=== PATIENT | male | born 1970 | race African-American/Black ===

== ENCOUNTER 2020-10-29 18:16 | Inpatient (IN) | payer MEDICAID ==
[~2020-10-29] VITALS: Ht 182.9 cm; Wt 103.7 kg
[2020-10-29 19:00] VITALS: BP 127/78; BMI 29.0
--- NOTE | 2020-10-29 19:00 | NUR ---
Two IVs started; 20g LAC and 20g RAC, two attempts, good blood return, patent and secure with tape and clear dressing. Procedure explained, tolerated well.
[2020-10-29 19:54] LABS: BASOPHILS 0.6 % (0-2); EOSINOPHILS 1.8 % (0-7); IMMATURE GRANULOCYTES 0.7 % (0-5); LYMPHOCYTE ABS# 0.99 10x3/uL (1.32-3.57); MCH 27.6 pg (26.0-34.0); MCHC 32.6 g/dL (31.0-37.0); MCV 84.6 fL (80.0-100.0); MEAN PLATELET VOLUME 9.3 fL (7.4-10.4); MONOCYTES 8.7 % (2-11); NEUTROPHIL ABS# 5.26 10x3/uL (1.78-5.38); NEUTROPHILS 74.2 % (40-80); PLATELET COUNT 247 10x3/uL (130-400); RBC 2.28 10x6/uL (4.20-6.10); RDW 16.9 % (11.5-14.5); RETIC 3.85 % (0.45-2.28); WBC 7.1 10x3/uL (4.8-10.8)
[2020-10-29 20:00] VITALS: BP 126/80
[2020-10-29] MEDS ORDERED: NORVASC10 MG PO (20:03)
[2020-10-29] MEDS ORDERED: METOPROLOL TART50 MG PO (20:04)
[2020-10-29 20:17] LABS: APTT 33.8 SECONDS (22.8-39.4); INR 1.45 (0.85-1.17); PROTIME 16.3 SECONDS (11.6-15.0)
[2020-10-29 20:21] LABS: % SATURATION 10 % (15-55); IRON 18 ug/dl (35-150); TOTAL IRON BIND CAPACITY 178 ug/dl (260-445); UNSAT IRON BIND CAPACITY 160 ug/dl (150-375)
[2020-10-29 20:46] LABS: ALBUMIN 3.4 g/dL (3.4-5.0); ANION GAP 28.6 mmol/L (8-16); BILIRUBIN - TOTAL 0.6 mg/dL (0.2-1.3); CARBON DIOXIDE 11.1 mmol/L (21.0-32.0); CREATININE - SERUM 27.9 mg/dL (0.6-1.3); POTASSIUM - SERUM 4.7 mmol/L (3.5-5.1); PROTEIN - SERUM 7.2 g/dL (6.4-8.2)
[2020-10-29 20:49] LABS: CALCIUM 6.2 mg/dL (8.5-10.1)
[2020-10-29 20:50] LABS: HEMATOCRIT 19.3 % (42.0-54.0); HEMOGLOBIN 6.3 g/dL (13.5-17.5)
[2020-10-29 21:00] VITALS: BP 121/75
[2020-10-29 21:10] LABS: D-DIMER-QUANTITATIVE 3.27 ug/mLFEU (0.20-0.54)
[2020-10-29 21:40] VITALS: BP 121/75
--- NOTE | 2020-10-29 21:40 | NUR ---
Blood transfusion started to LAC 20g. Order and consent verified. Blood product verified with patient identification/blood bank armband. Second verification with Dejah Landry RN. See vitals flowsheet for details.
--- NOTE | 2020-10-29 21:55 | NUR ---
No sign of transfusion reaction observed or reported. Blood transfusion rate increased from 50 ml/hr to 150 ml/hr.
[2020-10-29 22:00] VITALS: BP 123/68
[2020-10-29 23:00] VITALS: BP 133/86
--- NOTE | 2020-10-29 23:15 | NUR ---
EKG completed as ordered. Normal sinus rhythm with prolonged QT 440/488 ms. HR 74. Hardcopy placed in chart.
[2020-10-29 23:18] LABS: CKMB 2.7 U/L (0.0-3.6); CREATINE KINASE 453 UL (21-232); TROPONIN-I 0.024 ng/mL (0.000-0.060)
--- NOTE | 2020-10-29 23:30 | NUR ---
Dr. Nagel contacted for lovenox dosing per CARLOS MANUEL Lopez Lovenox 30mg sq x 1 and consult pharmacy for dosing.
[2020-10-29 23:57] LABS: UDS - AMPHET NEGATIVE QUAL (NEGATIVE); UDS - BARB NEGATIVE QUAL (NEGATIVE); UDS - BENZO NEGATIVE QUAL (NEGATIVE); UDS - COCAINE NEGATIVE QUAL (NEGATIVE); UDS - OPIATE NEGATIVE QUAL (NEGATIVE); UDS - PCP NEGATIVE QUAL (NEGATIVE); UDS - THC NEGATIVE QUAL (NEGATIVE)
[2020-10-29 23:58] LABS: BILIRUBIN NEGATIVE (NEGATIVE); KETONE NEGATIVE (NEGATIVE); NITRITE NEGATIVE (NEGATIVE); UROBILINOGEN NORMAL mg/dL (< 2)
[2020-10-30] VITALS (20 sets, daily range): BP systolic 120–170; BP diastolic 80–100; BMI 29.6
[2020-10-30 00:01] LABS: BACTERIA FEW HPF (NONE SEEN); SQUAMOUS EPITHELIAL 0-5 HPF (0-4); WHITE CELLS - URINE 0-5 HPF (0-1)
--- NOTE | 2020-10-30 00:18 | NUR ---
Blood transfusion completed. See vitals flowsheet. 335ml infused including NS priming.
--- NOTE | 2020-10-30 00:20 | NUR ---
Blood transfusion started to LAC 20g. Blood product verified with patient identification and bloodbank armband. Second verification with Nerissa Mitchell RN. See blood administration record and vitals flowsheet for details.
--- NOTE | 2020-10-30 02:36 | NUR ---
Second blood transfusion completed. 282ml infused. No sign of reaction observed or reported, remains afebrile.
--- NOTE | 2020-10-30 04:22 | NUR ---
EKG completed. Normal sinus rhythm, prolonged QT, nonspecific Twave abnormality, HR 76. Hardcopy placed in chart.
--- NOTE | 2020-10-30 05:06 | NUR ---
Shift summary: Patient received 2 units PRBCs as ordered. Oral intake adequate, voids urine independently. Alert and oriented, denies any pain. Renal US and LLE US completed awaiting result. Personal items and call light within reach at bedside. Plan of care discussed. See flowsheets for details.
[2020-10-30 05:18] LABS: BASOPHILS 0.5 % (0-2); EOSINOPHILS 2.3 % (0-7); HEMATOCRIT 21.9 % (42.0-54.0); IMMATURE GRANULOCYTES 0.3 % (0-5); LYMPHOCYTE ABS# 1.36 10x3/uL (1.32-3.57); MCH 27.3 pg (26.0-34.0); MCHC 32.4 g/dL (31.0-37.0); MCV 84.2 fL (80.0-100.0); MEAN PLATELET VOLUME 10.3 fL (7.4-10.4); MONOCYTES 9.5 % (2-11); NEUTROPHIL ABS# 4.04 10x3/uL (1.78-5.38); NEUTROPHILS 65.4 % (40-80); PLATELET COUNT 249 10x3/uL (130-400); RDW 16.4 % (11.5-14.5); WBC 6.2 10x3/uL (4.8-10.8)
[2020-10-30 05:43] LABS: HEMOGLOBIN 7.1 g/dL (13.5-17.5)
[2020-10-30 05:56] LABS: ALBUMIN 2.9 g/dL (3.4-5.0); ALKALINE PHOSPHATASE 46 U/L (30-120); BILIRUBIN - TOTAL 0.68 mg/dL (0.2-1.3); CARBON DIOXIDE 10.7 mmol/L (21.0-32.0); CHLORIDE - SERUM 102 mmol/L (98-107); CKMB 3.2 U/L (0.0-3.6); CREATINE KINASE 432 UL (21-232); GLUCOSE 77 mg/dL (74-106); MAGNESIUM - SERUM 1.7 mg/dL (1.8-2.4); POTASSIUM - SERUM 4.3 mmol/L (3.5-5.1); PROTEIN - SERUM 7.3 g/dL (6.4-8.2); SODIUM 137 mmol/L (136-145); TROPONIN-I < 0.017 ng/mL (0.000-0.060)
[2020-10-30 06:07] LABS: ALT (SGPT) 15 U/L (10-68); CALC OSMOLALITY 324 mosm/kg (275-300); CREATININE - SERUM 27.1 mg/dL (0.6-1.3); eGFR NON AFRICAN AMERICAN 2 mL/min (90-120)
[2020-10-30 06:09] LABS: CALCIUM 6.3 mg/dL (8.5-10.1); PHOSPHOROUS 11.9 mg/dL (2.5-4.9); UREA NITROGEN 158 mg/dL (7-18)
--- NOTE | 2020-10-30 06:19 | NUR ---
Patient refused beltran catheter placement. Risks and benefits discussed, verbalized understanding.
--- NOTE | 2020-10-30 06:59 | NUR ---
Spoke to Yashira in pharmacy regarding lovenox dosing for patient. Pharmacy will dose for DVT prophylaxis per Dr. Nagel's request.
[2020-10-30 10:15] LABS: CKMB 2.9 U/L (0.0-3.6); CREATINE KINASE 422 UL (21-232); TROPONIN-I < 0.017 ng/mL (0.000-0.060)
[2020-10-31] VITALS (15 sets, daily range): BP systolic 130–156; BP diastolic 73–91
[2020-10-31 02:40] LABS: CREATININE - URINE 102.2 mg/dL (30-125); PRO/CRE RATIO URINE 1.9 mg/g; PROTEIN - URINE 196.3 mg/dL (0.0-11.9)
[2020-10-31 04:48] LABS: BASOPHILS 0.1 % (0-2); EOSINOPHILS 1.2 % (0-7); HEMATOCRIT 20.7 % (42.0-54.0); IMMATURE GRANULOCYTES 0.2 % (0-5); LYMPHOCYTE ABS# 1.01 10x3/uL (1.32-3.57); LYMPHOCYTES 12.2 % (15-50); MCH 27.5 pg (26.0-34.0); MCHC 33.3 g/dL (31.0-37.0); MCV 82.5 fL (80.0-100.0); MEAN PLATELET VOLUME 10.5 fL (7.4-10.4); MONOCYTES 9.5 % (2-11); NEUTROPHIL ABS# 6.38 10x3/uL (1.78-5.38); NEUTROPHILS 76.8 % (40-80); PLATELET COUNT 257 10x3/uL (130-400); RBC 2.51 10x6/uL (4.20-6.10); RDW 16.4 % (11.5-14.5)
[2020-10-31 05:24] LABS: ALBUMIN 2.8 g/dL (3.4-5.0); BILIRUBIN - TOTAL 0.63 mg/dL (0.2-1.3); MAGNESIUM - SERUM 1.6 mg/dL (1.8-2.4); PROTEIN - SERUM 6.9 g/dL (6.4-8.2); URIC ACID 12.9 mg/dL (2.6-7.2)
[2020-10-31 05:29] LABS: ANION GAP 25.8 mmol/L (8-16); CARBON DIOXIDE 14.5 mmol/L (21.0-32.0); CREATININE - SERUM 25.2 mg/dL (0.6-1.3); POTASSIUM - SERUM 3.3 mmol/L (3.5-5.1); WBC 8.3 10x3/uL (4.8-10.8)
[2020-10-31 05:30] LABS: CALCIUM 6.8 mg/dL (8.5-10.1); HEMOGLOBIN 6.9 g/dL (13.5-17.5)
[2020-10-31 06:14] LABS: ERYTHROCYTE SEDIMENTATION RATE 101 mm/hr (0-20)
--- NOTE | 2020-10-31 06:38 | NUR ---
Shift summary: Patient declines dialysis at this time, states "I need more time to think about it and talk to my daughter", does not offer a timeframe. No changes in patient status, plan of care discussed with Dr. Platt by telephone. Risks and benefits regarding dialysis discussed with patient by this nurse.
--- NOTE | 2020-10-31 15:26 | NUR ---
REPORT CALLED TO DIANNA BECKHAM. PT TRANSPORTED TO 2123 VIA W/C. ALL PT BELONGINGS TAKEN WITH PT AT TIME OF TRANSPORT. PT STABLE WITH EQUAL NON LABORED RR. VS STABLE
--- NOTE | 2020-10-31 16:09 | NUR ---
ARRIVED TO FLOOR, ALERT AND ORIENTED. AMBULATE WITH ASSIST. SHAKY AND WEAK. PATIENT STATES IF THEY DO NOT HAVE CODE THEY ARE NOT TO GET ANY INFORMATION. DENIES ANY NEEDS AT THIS TIME. CALL LIGHT IN REACH.
--- NOTE | 2020-10-31 17:03 | NUR ---
PATIENT TO ASK PRIMARY NURSE FOR AGE VISITATION FOR FLOOR. SHE TOLD HIM 15 AFTER SHE ASKED ME. SHE THEN ASKED ME TO TALK TO HIM HE WAS UNHAPPY WITH IS. I WENT INTO THE ROOM AND INTRODUCED MYSELF AND TOLD HIM THAT I COULD CALL ADMINISTRATION FOR AN APPROVAL HE JUST CAME FROM ICU AND HAS NOT SEEN HIS 13 YR OLD SINCE THURSDAY. HE SAID IT WAS OKAY TO NOT CALL THEM. PILLOW GIVEN FOR COMFORT OF RIGHT LEG WHICH IS SLIGHTLY SWOLLEN.
--- NOTE | 2020-10-31 18:13 | NUR ---
PATIENT STATES INFORMATION CAN BE GIVEN TO TO TAMMY GARCIA AND JENNYFER.
--- NOTE | 2020-11-01 03:43 | NUR ---
I have reviewed this patient and I concur with the Shift Assessment completed by the Licensed Practical Nurse today this shift.
[2020-11-01 04:00] VITALS: BP 119/71
[2020-11-01 07:05] LABS: ALBUMIN 2.6 g/dL (3.4-5.0); BILIRUBIN - TOTAL 0.72 mg/dL (0.2-1.3); MAGNESIUM - SERUM 1.6 mg/dL (1.8-2.4); POTASSIUM - SERUM 3.2 mmol/L (3.5-5.1); PROTEIN - SERUM 6.7 g/dL (6.4-8.2)
[2020-11-01 07:07] LABS: ANION GAP 23.5 mmol/L (8-16); CARBON DIOXIDE 19.7 mmol/L (21.0-32.0); CREATININE - SERUM 24.4 mg/dL (0.6-1.3)
[2020-11-01 07:10] LABS: CALCIUM 6.9 mg/dL (8.5-10.1)
--- NOTE | 2020-11-01 07:13 | NUR ---
RECEIVE SHIFT REPORT. RESTING IN BED WITH EYES CLOSED. NPO SINCE MIDNIGHT FOR PD CATH PLACEMENT TODAY. WILL CONTINUE POC AND SAFETY PRECAUTIONS.
[2020-11-01 07:32] LABS: BASOPHILS 0.3 % (0-2); EOSINOPHILS 0.2 % (0-7); HEMATOCRIT 22.4 % (42.0-54.0); IMMATURE GRANULOCYTES 0.3 % (0-5); LYMPHOCYTE ABS# 1.46 10x3/uL (1.32-3.57); LYMPHOCYTES 15.6 % (15-50); MCH 27.1 pg (26.0-34.0); MCV 82.1 fL (80.0-100.0); MEAN PLATELET VOLUME 10.4 fL (7.4-10.4); NEUTROPHIL ABS# 7.06 10x3/uL (1.78-5.38); NEUTROPHILS 75.6 % (40-80); PLATELET COUNT 251 10x3/uL (130-400); RBC 2.73 10x6/uL (4.20-6.10); RDW 16.3 % (11.5-14.5); WBC 9.4 10x3/uL (4.8-10.8)
[2020-11-01 07:34] LABS: HEMOGLOBIN 7.4 g/dL (13.5-17.5)
[2020-11-01 08:00] VITALS: BP 146/79
--- NOTE | 2020-11-01 08:06 | NUR ---
NOTIFIED DONITA [place] APN OF HEMOGLOBIN, POTASSIUM, AND MAGNESIUM LEVELS. NO NEW ORDERS.
[2020-11-01 09:13] LABS: ANA REFLEX - DIRECT Negative (Negative)
[2020-11-01 11:00] VITALS: BP 128/79
--- NOTE | 2020-11-01 13:02 | NUR ---
PATIENT DOES NOT WANT ANYONE GIVEN ANY INFORMATION NOT EVEN IF THEY HAVE CODE.
--- NOTE | 2020-11-01 13:16 | NUR ---
Nutrition Follow-up: NPO for PD catheter placement today. Appetite/PO intake has been poor. Wt: 228.2# (10/31); 213.8# (10/29) Labs noted: K+ 3.2, BUN 140, Cre 24.4, GFR 3, Ca 6.9, Mg 1.6, Alb 2.6 Meds noted: Prednisone, Phoslo, Calcitriol, Pepcid -Resume diet when medically feasible; encourage PO intake and honor food preferences within diet restrictions. Hopefully, appetite/PO intake will improve when dialysis started. -Monitor wt. -RD follow-up: 11/05
--- NOTE | 2020-11-01 14:15 | EC ---
PATIENT:RENZO SANCHEZ DATE OF SERVICE: 10/29/20 SEX: M MEDICAL RECORD: [id number] DATE OF : [birth year] LOCATION:D.M2 D.212 AGE OF PATIENT: 50 ADMISSION DATE: 10/29/20 REFERRING PHYSICIAN: INTERPRETING PHYSICIAN: RENZO ALBA MD ECHOCARDIOGRAM REPORT ECHO CHARGES 4 ECHO COMPLETE Date: 10/30/20 CLINICAL DIAGNOSIS: DYSPNEA ECHOCARDIOGRAPHIC MEASUREMENTS (adult normal given) AC root (d.<3.7cm) 3.6 cm LV Septum d (<1.2 cm> 1.3 cm Valve Excursion 2.3 cm LV Septum (systole) 1.8 cm Left Atria (s.<4.0cm> 4.8 cm LVPW d(<1.2cm) 1.0 cm RV (d.<2.3cm) 3.9 cm LVPW (sytole) 1.5 cm LV diastole(<5.6CM) 6.3 cm MV E-F(>70mm/sec) cm LV systole 4.8 cm LVOT Diameter 1.9 cm MV exc.(>10mm) 1.7 cm Est.ejection fraction (50-75%) % DOPPLER: LVIT cm/sec A 101 cm/sec E 153 cm/sec LA cm/sec RVSP 32 mmHg LVOT 121 cm/sec AOP1/2T m/s Asc. Ao 135 cm/sec RVOT 57 cm/sec RA cm/sec PA 99 cm/sec AV Gradient Peak 7.3 mmHg AV Mean 4.1 mmHg AV Area 2.6 cm MV Gradient Peak 9.5 mmHg MV Mean 4.7 mmHg MV Area cm COMMENTS: Sales And Marketing Agent: Iman [facility] Solar Panel Installer: 3 Dr. Fonseca TAPE# Pericardial Effusion Y DATE OF SERVICE: Adequate 2D, color flow imaging, spectral Doppler, and M-Mode. FINDINGS: Borderline LVH. LV internal dimension is normal. Wall motion is normal. EF is greater than or equal to 55%. Aortic valve is tricuspid. No evidence of stenosis by Doppler interrogation. Left atrium is mildly dilated at 4.8 cm. Mitral valve shows no prolapse. Trace MR. Right side is grossly normal. Mild TR. ECHOCARDIOGRAM REPORT [id number] DANIELRENZO TRANSINT:[id number] Voice Confirmation ID: [id number] DOCUMENT ID: [id number] RENZO ALBA MD at 1415 CC: [id number] DICTATION DATE: 10/30/20 1632 KETTLE WORKER: 10/31/20 0209 ADM IN [place] [id number] [place] [id number]
[2020-11-01 15:00] VITALS: BP 156/90
--- NOTE | 2020-11-01 16:11 | CN ---
PATIENT NAME:RENZO SANCHEZ MEDICAL RECORD: [id number] : 68 LOCATION:[facility].2123 ADMIT DATE: 10/29/20 ACCOUNT: [id number] CONSULTING PHYSICIAN: SG WHITMORE MD REFERRING PHYSICIAN: YAMILETH GOODEN MD DATE OF CONSULTATION: 10/31/2020 IDENTIFYING DATA: The patient is 50 years old and he is admitted to the hospital secondary to renal failure. CHIEF COMPLAINT: None. HISTORY OF PRESENT ILLNESS: Apparently, there is some question about the patient's mental status. His longstanding live-in girlfriend is in the room and she indicates that he is not fully intact cognitively, but cannot say how or in what way. The patient does not feel that there is anything wrong with him cognitively. He denies neurovegetative depressive symptoms or thoughts of harming himself or others as well as psychiatric symptoms. Furthermore, he expresses a full understanding of the relative pros and cons of renal dialysis and is showing a remarkably good attitude about the situation. ASSESSMENT: Adjustment disorder with mixed emotional features. PLAN: The patient shows no evidence of acute or direct dangerousness. The girlfriend is not able to tell me in what way he is not intact. He feels he is intact. At this point, I have no recommendations and there is no need for additional mental health followup. If additional symptoms develop or new information surfaces that necessitate a reevaluation, I will be happy to see him again. TRANSINT:[id number] Voice Confirmation ID: [id number] DOCUMENT ID: [id number] SG WHITMORE MD at 1611 CC: [id number] DICTATION DATE: 10/31/20 1603 WALL AND FLOOR TILER: 10/31/20 2342 ADM IN [facility] [address] [place] [address]
[2020-11-01 19:23] VITALS: BP 141/79
[2020-11-02 00:14] VITALS: BP 134/77
[2020-11-02 05:20] LABS: BASOPHILS 0.2 % (0-2); EOSINOPHILS 0.2 % (0-7); HEMATOCRIT 26.7 % (42.0-54.0); HEMOGLOBIN 8.8 g/dL (13.5-17.5); IMMATURE GRANULOCYTES 0.8 % (0-5); LYMPHOCYTE ABS# 1.52 10x3/uL (1.32-3.57); LYMPHOCYTES 14.8 % (15-50); MCH 27.8 pg (26.0-34.0); MEAN PLATELET VOLUME 10.9 fL (7.4-10.4); MONOCYTES 5.7 % (2-11); NEUTROPHIL ABS# 8.07 10x3/uL (1.78-5.38); NEUTROPHILS 78.3 % (40-80); PLATELET COUNT 276 10x3/uL (130-400); RBC 3.17 10x6/uL (4.20-6.10); WBC 10.3 10x3/uL (4.8-10.8)
[2020-11-02 05:28] VITALS: BP 145/95
[2020-11-02 05:30] LABS: MCV 84.2 fL (80.0-100.0)
[2020-11-02 05:46] LABS: ALBUMIN 2.6 g/dL (3.4-5.0); ANION GAP 22.4 mmol/L (8-16); BILIRUBIN - TOTAL 0.64 mg/dL (0.2-1.3); CARBON DIOXIDE 21.1 mmol/L (21.0-32.0); MAGNESIUM - SERUM 1.6 mg/dL (1.8-2.4); POTASSIUM - SERUM 3.5 mmol/L (3.5-5.1); PROTEIN - SERUM 7.2 g/dL (6.4-8.2)
[2020-11-02 05:53] LABS: CREATININE - SERUM 24.1 mg/dL (0.6-1.3)
[2020-11-02 05:55] LABS: CALCIUM 6.5 mg/dL (8.5-10.1)
--- NOTE | 2020-11-02 06:07 | NUR ---
PT HAS RIGHT SIDED EDEMA, LOWER AND UPPER EXTREMITY. STATES KNEE PAIN IS 8/10. DESCRIBES IT SIMILAR TO "GOUT PAIN". UNABLE TO BARE WEIGHT FOR A LONG PERIOD OF TIME DURING PREP FOR PROCEDURE. RIGHT THIGH HAS MOST EDEMA. PULSES PALP. STATES HE "IS READY FOR TODAY AND WHAT IF HE DOESNT WANT TO GO HOME TODAY". PTS SISTER JACKSON CAME UP DURING BEGINING OF THE SHIFT. PROVIDED PASSCODE AND PT VERBALIZED IT WAS OK TO GIVE HER INFORMATION. STATED HIS GIRLFRIEND IS NOT ALLOWED TO KNOW INFO.
--- NOTE | 2020-11-02 07:05 | NUR ---
OFF FLOOR FOR SURGERY.
--- NOTE | 2020-11-02 07:10 | NUR ---
RECEIVE SHIFT REPORT. PRE OP AND READY FOR SURGERY. DENIES ANY NEEDS. RIGHT EXTREMITIES INCREASING IN PAIN AND EDEMA. WILL DISCUSS WITH MD. CONTINUE POC AND SAFETY PRECAUTIONS.
--- NOTE | 2020-11-02 09:35 | NUR ---
DRESSINGS X3 TO SITES CDI
[2020-11-02 10:31] VITALS: BP 150/93
[2020-11-02 12:01] VITALS: BP 157/95
[2020-11-02 15:58] VITALS: BP 166/101
--- NOTE | 2020-11-02 19:00 | NUR ---
RECEIVED REPORT, WILL ASSUME CARE OF PT, DENIES ANY NEEDS AT THIS TIME, BED IS LOW, SRX2, CALL LIGHT IN REACH, WILL CONTINUE PLAN OF CARE
--- NOTE | 2020-11-02 19:26 | NUR ---
PAGED DR. REYNOLDS TO GIVE XRAY RESULTS
[2020-11-02 20:09] VITALS: BP 136/87
--- NOTE | 2020-11-02 20:27 | NUR ---
DR. REYNOLDS ON FLOOR, SAID RESULTS ARE EXPECTED
[2020-11-03 01:28] VITALS: BP 125/79
--- NOTE | 2020-11-03 02:53 | NUR ---
I have reviewed this patient and I concur with the Shift Assessment completed by the Licensed Practical Nurse today this shift.
[2020-11-03 05:29] VITALS: BP 146/86
[2020-11-03 05:39] LABS: BASOPHILS 0.1 % (0-2); EOSINOPHILS 0 % (0-7); HEMOGLOBIN 8.2 g/dL (13.5-17.5); IMMATURE GRANULOCYTES 0.8 % (0-5); LYMPHOCYTE ABS# 0.99 10x3/uL (1.32-3.57); LYMPHOCYTES 9.5 % (15-50); MCHC 32.8 g/dL (31.0-37.0); MCV 85.3 fL (80.0-100.0); MEAN PLATELET VOLUME 9.9 fL (7.4-10.4); MONOCYTES 7.3 % (2-11); NEUTROPHIL ABS# 8.54 10x3/uL (1.78-5.38); NEUTROPHILS 82.3 % (40-80); PLATELET COUNT 249 10x3/uL (130-400); RBC 2.93 10x6/uL (4.20-6.10); RDW 16.1 % (11.5-14.5); WBC 10.4 10x3/uL (4.8-10.8)
[2020-11-03 06:04] LABS: INR 1.3 (0.85-1.17)
[2020-11-03 06:17] LABS: ALBUMIN 2.7 g/dL (3.4-5.0); ANION GAP 23.6 mmol/L (8-16); BILIRUBIN - TOTAL 0.51 mg/dL (0.2-1.3); CARBON DIOXIDE 19.4 mmol/L (21.0-32.0); MAGNESIUM - SERUM 1.7 mg/dL (1.8-2.4); PROTEIN - SERUM 6.4 g/dL (6.4-8.2)
[2020-11-03 06:19] LABS: CREATININE - SERUM 23.5 mg/dL (0.6-1.3)
[2020-11-03 06:21] LABS: CALCIUM 6.7 mg/dL (8.5-10.1)
--- NOTE | 2020-11-03 06:36 | NUR ---
I have reviewed this patient and I concur with the Shift Assessment completed by the Licensed Practical Nurse today this shift.
[2020-11-03 07:34] VITALS: BP 120/78
[2020-11-03 10:11] LABS: HEPATITIS C ANTIBODY <0.1 (0.0-0.9)
[2020-11-03 11:47] VITALS: BP 143/85
--- NOTE | 2020-11-03 12:31 | NUR ---
I have reviewed this patient and I concur with the Shift Assessment completed by the Licensed Practical Nurse today this shift.
--- NOTE | 2020-11-03 13:45 | NUR ---
PATIENT AAOX4, RESP EVEN AND NON LABORED, NO S/S OF DISTRESS, MEDICATIONS ADMINISTERED, PATIENT IS COMPLAINING OF RIGHT LEG PAIN, RIGHT KNEE IS SWOLLEN AND WARM TO TOUCH, , DR. REYNOLDS AND DONITA CAPACITOR REPAIRER ALL AWARE OF LEG PAIN AND SWELLING, PATIENT STATES HIS LEG PAIN/SWELLING IS FROM GOUT, GOUT MEDICATION ORDERED AND ADMINISTERED, DR REYNOLDS STATED CONSULT ORTHO, PATIENT HAS NO FURTHER NEEDS AT THIS TIME, TERRANCE STANFORD
--- NOTE | 2020-11-03 14:29 | NUR ---
PATIENT HAS BEEN ABLE TO GET UP AND GO TO THE BATHROOM OF THIS MORNING, RECENTLY LEG PAIN/SWELLING HAS INCREASED AND PATIENT IS NOW USING A BEDSIDE COMMODE DUE TO NOT BEING ABLE TO BARREL SCRAPER HIS RIGHT LEG. DR YEBOAH HAS BEEN NOTIFIED AND WAITING ON ORTHO AND GENERAL SURGEY CONSULT, PAIN MEDICATION HAS BEEN ADMINISTERED, NO FURTHER NEEDS AT THIS TIME, TERRANCE STANFORD
[2020-11-03 15:59] VITALS: BP 134/83
[2020-11-03 17:12] VITALS: Ht 182.9 cm; Wt 103.7 kg
--- NOTE | 2020-11-03 19:30 | NUR ---
RECEIVED REPORT, WILL ASSUME CARE OF PT, SLEEPING, NO DISTRESS NOTICED AT THIS TIME, BED IS LOW, SRX2, CALL LIGHT IN REACH, WILL CONTINUE PLAN OF CARE
[2020-11-03 19:58] VITALS: BP 140/91
--- NOTE | 2020-11-03 20:27 | OP ---
PATIENT NAME: RENZO SANCHEZ MEDICAL RECORD: [id number] :68 LOCATION:D. D.2123 ADMISSION DATE:10/29/20 SURGEON: KYREE REYNOLDS MD DATE OF OPERATION: 11/02/2020 REFERRED BY: Lionel Nagel MD PREOPERATIVE DIAGNOSIS: End-stage renal disease, in need of dialysis. POSTOPERATIVE DIAGNOSIS: End-stage renal disease, in need of dialysis. OPERATION PERFORMED: Laparoscopic implantation of a peritoneal dialysis catheter. SURGEON: Kyree Reynolds MD ANESTHESIA: General endotracheal per ASPARAGUS CUTTER PREOPERATIVE NOTE: Mr. Sanchez is a 50-year-old -Naur[place] male patient with end-stage renal disease, who has not yet started dialysis. He has been very reluctant to do so all and is down to the wire. Dr. Nagel talked with him at length yesterday and he finally agreed to having a peritoneal catheter implanted and I spoke with him this morning preoperatively when I saw him in consultation and again he is very agreeable to having a peritoneal catheter implanted today. The plan is then that he will be able to be discharged and begin almost immediately his peritoneal dialysis training at [facility]. DESCRIPTION OF PROCEDURE: Under general endotracheal anesthesia, the patient was placed in supine position. The Reed catheter was inserted and the abdomen prepped and draped in a sterile manner. I used the PD catheter to measure, identify a site to the left of the umbilicus and slightly above the level of the umbilicus, which would leave the coiled end of the catheter level just below the symphysis pubis. I made a paramedian vertical incision there and carried that down to the anterior rectus sheath where I placed a pursestring suture of 0 Vicryl. I then placed a 5 mm laparoscopic port and 5 mm laparoscope through a small incision in the left upper quadrant. Pneumoperitoneum was established with carbon dioxide and I then inserted a needle and guidewire through the anterior rectus. After infiltrating the area and the rectus muscle with 0.25% Marcaine with epinephrine. The guidewire was placed in preperitoneal and intrarectus tunnel, which will direct the catheter down towards the pelvis. A peel-away introducer was inserted and through that I inserted the dialysis catheter. The deep cuff was left in position just below the anterior rectus sheath. The pursestring suture was tied and the catheter was then pulled through a tunnel, which arched superiorly and laterally to the left and exited in the left upper quadrant. The superficial cuff was 3 cm or more from the skin exit site. The catheter was then connected to a transverse set and 1000 mL of saline was allowed to run into the abdomen. With the patient then in a slight reverse Trendelenburg, the bag was placed on the floor and the normal saline was siphoned from the pelvis. There was rapid return of about 900 mL. The laparoscopic port was removed. The catheter was flushed with Hep-Lock solution, clamped and capped. A new betadine plastic cap was placed on the transverse set. The paramedian incision was closed with interrupted inverted 3-0 Vicryl in 2 layers and the skin was closed with running intracuticular 4-0 Stratafix. OPERATIVE REPORT [id number] RENZO SANCHEZ The patient had quite a tendency to bleed at the beginning of the procedure when I made the first incision and this was in spite of having been given blood and plasma and DDAVP over the last couple of days. I gave him 10 mcg of DDAVP intraoperatively and his bleeding seemed to stop immediately with that. There were no other complications or problems intraoperatively. Note, the patient had no hernias. There was no omentum in the pelvis and there were no intra-abdominal adhesions. The paramedian incision was closed with Dermabond glue, Maxorb Ag, Cavilon and dressed with a Tegaderm. The catheter at the exit site was dressed with a Biopatch and then a standard border dressing. He was awakened and extubated and the Reed catheter removed and taken to the recovery room in stable condition. Blood loss during the operation was about 5 mL, none was replaced. All sponges, instruments and needles were accounted for. No drain was used and no surgical specimen was submitted for histopathology. TRANSINT:[id number] Voice Confirmation ID: [id number] DOCUMENT ID: [id number] KYREE REYNOLDS MD at 2027 CC: [id number] DICTATION DATE: 11/02/20 1237 JOCKEY'S AGENT: 11/02/202207 ADM IN [facility] [address] [place] [address]
[2020-11-03 22:21] LABS: HEMATOCRIT 26.2 % (42.0-54.0); HEMOGLOBIN 8.5 g/dL (13.5-17.5); MCHC 32.4 g/dL (31.0-37.0); MCV 86.2 fL (80.0-100.0); MEAN PLATELET VOLUME 10.6 fL (7.4-10.4); RBC 3.04 10x6/uL (4.20-6.10); RDW 16.3 % (11.5-14.5); RETIC 3.5 % (0.45-2.28); WBC 11.1 10x3/uL (4.8-10.8)
[2020-11-04 00:55] VITALS: BP 106/79
--- NOTE | 2020-11-04 05:44 | NUR ---
I have reviewed this patient and I concur with the Shift Assessment completed by the Licensed Practical Nurse today this shift.
[2020-11-04 06:14] VITALS: BP 124/82
--- NOTE | 2020-11-04 07:20 | NUR ---
RECIEVE REPORT. ALERT AND ORIENTED X4. SITTING UP IN BED. CALLED REQUESTING INFORMATION. NAME NOT ON CHART. ASK PATIENT PERMISSION. PERMISSION DENIED. NOTIFY UNABLE TO GIVE INFORMATION AT THIS TIME. DENIES ANY NEEDS. CONTINUE PLAN OF CARE AND SAFETY PRECAUTIONS.
[2020-11-04 07:55] LABS: HEMATOCRIT 25.2 % (42.0-54.0); HEMOGLOBIN 8.3 g/dL (13.5-17.5); MCH 28.4 pg (26.0-34.0); MCHC 32.9 g/dL (31.0-37.0); MCV 86.3 fL (80.0-100.0); RBC 2.92 10x6/uL (4.20-6.10); RDW 15.9 % (11.5-14.5); WBC 12.1 10x3/uL (4.8-10.8)
[2020-11-04 08:03] VITALS: BP 129/81
[2020-11-04 09:18] LABS: ALBUMIN 2.7 g/dL (3.4-5.0); ANION GAP 21.7 mmol/L (8-16); BILIRUBIN - TOTAL 0.51 mg/dL (0.2-1.3); CARBON DIOXIDE 19.6 mmol/L (21.0-32.0); POTASSIUM - SERUM 4.3 mmol/L (3.5-5.1); PROTEIN - SERUM 7.2 g/dL (6.4-8.2)
[2020-11-04 09:34] LABS: CALCIUM 6.9 mg/dL (8.5-10.1); CREATININE - SERUM 23.2 mg/dL (0.6-1.3)
[2020-11-04 12:40] VITALS: BP 114/84
--- NOTE | 2020-11-04 13:29 | MORECARE ---
CASE MANAGEMENT DISCHARGE SUMMARY PATIENT: RENZO SANCHEZ UNIT: [id number] ADM DATE: 10/29/20 AGE: 50 : 68 SEX: M ROOM/BED: D.2123 AUTHOR: VIDA ACKERMAN PHYSICIAN: REFERRING PHYSICIAN: YAMILETH GOODEN MD DATE OF SERVICE: 11/04/20 Case Management Discharge Planning Summary DCP REVIEW SUMMARY ANTICIPATED D/C DATE: EXPECTED LOS : CASE STATUS: DCP Initiated INITIAL REVIEW: 11/04/2020 INITIAL REVIEWER: Chasidy Garcia FINAL DISCHARGE DISPOSITION: : FINAL REVIEWER: FINAL REVIEW DATE: DCP Focus Questions & Answers QUESTION: ANSWER : PATIENT: RENZO SANCHEZ ENCOUNTER: [id number] MEDICAL RECORD#: [id number] ADMISSION DATE: 10/29/2020 DISCHARGE DATE: ATTENDING MD: YAMILETH WONG : AGE: 50 MARITAL STATUS: S DC PLAN ID: [id number] FACILITY: [facility] PRINTED ON: 11/04/20 13:29 CT All edits/amendments must be made on the electronic document DICTATION DATE: 11/04/20 132 WORKING FOREMAN: DM 11/04/20 1329 RPT#: [id number] DC DATE: STATUS: ADM IN [place] [address] [place] [address] END OF REPORT
--- NOTE | 2020-11-04 13:50 | MORECARE ---
CASE MANAGEMENT DISCHARGE SUMMARY PATIENT: RENZO SANCHEZ UNIT: [id number] ADM DATE: 10/29/20 AGE: 50 : 69 SEX: M ROOM/BED: D.5090 AUTHOR: MEKA,DOC PHYSICIAN: REFERRING PHYSICIAN: YAMILETH ELLIOTT MD DATE OF SERVICE: 11/04/20 Case Management Discharge Planning Summary COMMENTS ENTERED DATE: 11/04/20 13:47 CT COMMENT TYPE: Discharge Planning REVIEWER: Chasidy Garcia CM met with patient to discuss discharge planning/needs. He states he lives with his girl friend, Mali Salas. He declines to give me her phone number. States he is independent with all ADL's and AIDL's. States Dr. Elliott is his PCP and he uses [facility] [address]. I informed him of availability of home health and DME. I informed him when his Medicaid is active to have Dr. Elliott's office assist with getting him on his Medicaid as a PCP. He will need f/u for PD teaching on discharge. He denies needs at this time. CM will continue to follow and assist with discharge planning/needs. DCP REVIEW SUMMARY ANTICIPATED D/C DATE: EXPECTED LOS : CASE STATUS: DCP Initiated INITIAL REVIEW: 11/04/2020 INITIAL REVIEWER: Chasidy Garcia FINAL DISCHARGE DISPOSITION: : FINAL REVIEWER: FINAL REVIEW DATE: DCP Focus Questions & Answers DCP Evaluation QUESTION: ANSWER Patient and/or caregiver agree upon recommended discharge plan? : Yes Family / Caregiver's ability to cope with chronic illness: : a. Adequate (ability to meet patient's medical needs, ensures patient attends medical appts.) Patient's current cognitive status: : *Oriented to person, place, situation, time and present Patient's ability to cope with chronic illness : d. No chronic illness Patient gives permission to discuss discharge plans with: (name, relationship and number) : Vibha Corral [facility] - [phone] Functional screen assessment: : Basic needs can adequately be met by self Family / Caregiver's ability to cope with chronic illness: : a. Adequate (ability to meet patient's medical needs, ensures patient attends medical appts.) Physical Status: : Independent with ADL's Equipment needed for post hospitalization: : None Living Arrangements: : Home with Spouse/Significant Other Other Equipment comments: : Will need teaching in PD Results of this evaluation have been discussed with: : Patient Patient with capacity for self-care or can be cared for in same environment as prior to hospitalization? : Yes Baseline cognitive status: : *Oriented to person, place, situation, time and present Preadmission facility can/cannot provide post hospital level of care needs: : Can - at same level of care as preadmission Medication Management: : Patient states can afford medications Planned post hospital services available for patient? : Yes Pharmacy name(s): : [facility] [address] [facility] [address] Does Patient have transportation to get home and to follow-up medical appointments when discharged from the hospital? : Yes Would patient like to participate in any Care Coordination programs (if applicable): : Not applicable Does the patient have electricity at home? : Yes Does the patient have running water in their house? : Yes Equipment in use: : None Resources / Services in place: : None DCP Re-evaluation QUESTION: ANSWER Would patient like to participate in any Care Coordination programs (if applicable): : Not applicable PATIENT: RENZO SANCHEZ ENCOUNTER: [id number] MEDICAL RECORD#: [id number] ADMISSION DATE: 10/29/2020 DISCHARGE DATE: ATTENDING MD: YAMILETH WONG : AGE: 50 MARITAL STATUS: S DC PLAN ID: [id number] FACILITY: [facility] PRINTED ON: 11/04/20 13:50 CT All edits/amendments must be made on the electronic document DICTATION DATE: 11/04/20 135 CLOAK ROOM ATTENDANT: LASHONDA 11/04/20 135 RPT#: [id number] DC DATE: STATUS: ADM IN [facility] [address] [place] [address] END OF REPORT
[2020-11-04 16:54] VITALS: BP 137/87
--- NOTE | 2020-11-04 19:44 | NUR ---
RECEIVED REPORT, WILL ASSUME CARE OF PT, WATCHING TV, DENIES ANY NEEDS AT THIS TIME, BED IS LOW, SRX2, CALL LIGHT IN REACH, WILL CONTINUE PLAN OF CARE
[2020-11-04 22:06] VITALS: BP 122/76
--- NOTE | 2020-11-04 22:35 | NUR ---
I have reviewed this patient and I concur with the Shift Assessment completed by the Licensed Practical Nurse today this shift.
[2020-11-05 03:16] VITALS: BP 118/66
[2020-11-05 06:20] LABS: BASOPHILS 0.1 % (0-2); EOSINOPHILS 0.5 % (0-7); HEMATOCRIT 25.1 % (42.0-54.0); HEMOGLOBIN 8.1 g/dL (13.5-17.5); IMMATURE GRANULOCYTES 1.3 % (0-5); LYMPHOCYTE ABS# 0.64 10x3/uL (1.32-3.57); LYMPHOCYTES 6.7 % (15-50); MCH 28.2 pg (26.0-34.0); MCHC 32.3 g/dL (31.0-37.0); MCV 87.5 fL (80.0-100.0); MONOCYTES 4.5 % (2-11); NEUTROPHIL ABS# 8.27 10x3/uL (1.78-5.38); NEUTROPHILS 86.9 % (40-80); PLATELET COUNT 284 10x3/uL (130-400); RBC 2.87 10x6/uL (4.20-6.10); WBC 9.5 10x3/uL (4.8-10.8)
--- NOTE | 2020-11-05 07:20 | NUR ---
RECIEVE REPORT. ALERT AND ORIENTED X4. SITTING UP IN BED. ENCOURAGE TO INFORM STAFF WHEN HAVING BM TO SEE AMOUNT. SINUS RHYTHM ON TELEMETRY. RECIEVES LOVENOX INJ. DENIES ANY NEEDS AT THIS TIME. CONTINUE PLAN OF CARE AND SAFETY PRECAUTIONS.
[2020-11-05 07:22] LABS: ALBUMIN 2.5 g/dL (3.4-5.0); ANION GAP 23.6 mmol/L (8-16); BILIRUBIN - TOTAL 0.37 mg/dL (0.2-1.3); CARBON DIOXIDE 18.7 mmol/L (21.0-32.0); MAGNESIUM - SERUM 1.7 mg/dL (1.8-2.4); POTASSIUM - SERUM 4.3 mmol/L (3.5-5.1); PROTEIN - SERUM 6.8 g/dL (6.4-8.2)
[2020-11-05 07:25] LABS: CREATININE - SERUM 22.8 mg/dL (0.6-1.3)
[2020-11-05 08:00] VITALS: BP 123/76
[2020-11-05 12:00] VITALS: BP 116/69
--- NOTE | 2020-11-05 13:19 | NUR ---
Nutrition Reassessment/Follow-up: POD 3 PD catheter placement. PO intake improving; ate ~75% of breakfast this AM. Diet: Renal PO intake: 50% avg x 4 meals No new wt; last wt: 228.2# (10/31)IBW: 178# Last BM: 11/05 Labs noted: K+ 4.3, BUN 162, Cre 22.8, GFR 3, Glu 118, Ca 7.0, PO4 6.8, Mg 1.7, Alb 2.5 Meds noted: Nephrovite, Phoslo, Calcitriol, Prednisone, Miralax, Senokot, Pepcid, Lasix Est needs: [id number] kcal/day (25-30 kcal/kg IBW) 60-85 g protein/day (0.6-0.8 g/kg actual BW) Fluid: per MD -Encourage PO intake and honor food preferences within diet restrictions. -Need new wt. -RD will follow up within 3-4 days if pt still admitted.
[2020-11-05 15:00] VITALS: BP 121/74
[2020-11-05 15:05] LABS: HEMATOCRIT 26.4 % (42.0-54.0); HEMOGLOBIN 8.4 g/dL (13.5-17.5); MCH 28.2 pg (26.0-34.0); MCHC 31.8 g/dL (31.0-37.0); MCV 88.6 fL (80.0-100.0); MEAN PLATELET VOLUME 10.5 fL (7.4-10.4); RBC 2.98 10x6/uL (4.20-6.10); RDW 16.3 % (11.5-14.5); WBC 11.2 10x3/uL (4.8-10.8)
[2020-11-05 20:00] VITALS: BP 126/71
[2020-11-05 21:50] LABS: HEMATOCRIT 26.6 % (42.0-54.0); HEMOGLOBIN 8.5 g/dL (13.5-17.5); MCV 87.5 fL (80.0-100.0); MEAN PLATELET VOLUME 10.6 fL (7.4-10.4); RBC 3.04 10x6/uL (4.20-6.10); RDW 16.2 % (11.5-14.5); WBC 10.1 10x3/uL (4.8-10.8)
[2020-11-06] VITALS: BP 123/64
--- NOTE | 2020-11-06 02:48 | NUR ---
RESTING WITH EYES CLOSED, RESPERTIONS EVEN, NO S/S DISTRESS NOTED.
[2020-11-06 04:00] VITALS: BP 131/76
--- NOTE | 2020-11-06 05:07 | NUR ---
I have reviewed this patient and I concur with the Shift Assessment completed by the Licensed Practical Nurse today this shift.
[2020-11-06 05:20] LABS: BASOPHILS 0 % (0-2); EOSINOPHILS 0 % (0-7); HEMATOCRIT 26.5 % (42.0-54.0); HEMOGLOBIN 8.4 g/dL (13.5-17.5); IMMATURE GRANULOCYTES 1.3 % (0-5); LYMPHOCYTE ABS# 0.78 10x3/uL (1.32-3.57); LYMPHOCYTES 8.1 % (15-50); MCH 27.7 pg (26.0-34.0); MCHC 31.7 g/dL (31.0-37.0); MCV 87.5 fL (80.0-100.0); MEAN PLATELET VOLUME 10.7 fL (7.4-10.4); MONOCYTES 5.4 % (2-11); NEUTROPHIL ABS# 8.23 10x3/uL (1.78-5.38); NEUTROPHILS 85.2 % (40-80); PLATELET COUNT 294 10x3/uL (130-400); RBC 3.03 10x6/uL (4.20-6.10); RDW 16.2 % (11.5-14.5); WBC 9.7 10x3/uL (4.8-10.8)
[2020-11-06 05:59] LABS: ALBUMIN 2.5 g/dL (3.4-5.0); ANION GAP 20.9 mmol/L (8-16); BILIRUBIN - TOTAL 0.37 mg/dL (0.2-1.3); CALCIUM 7.3 mg/dL (8.5-10.1); CARBON DIOXIDE 21.2 mmol/L (21.0-32.0); MAGNESIUM - SERUM 1.8 mg/dL (1.8-2.4); POTASSIUM - SERUM 4.1 mmol/L (3.5-5.1); PROTEIN - SERUM 6.6 g/dL (6.4-8.2); URIC ACID 14.3 mg/dL (2.6-7.2)
[2020-11-06 08:57] VITALS: BP 129/73
--- NOTE | 2020-11-06 14:20 | NUR ---
INITIATE PD FLUSH ORDERED. INSTILL 500ml. INSTRUCT TO REMAIN LAYING FLAT FOR 1HOUR. FAMILY AT BEDSIDE. ALL WEARING MASK. CONTINUE PLAN OF CARE AND SAFETY PRECAUTIONS.
[2020-11-06 15:42] VITALS: BP 117/65
--- NOTE | 2020-11-06 15:52 | NUR ---
INITIATE DRAINING PD CATHETER. PD DRESSING CHANGED. PD FLUID PINK TINGED. TOLERATING EMPTYING. 500ml EMPTIED. DENIES ANY NEEDS. CONTINUE PLAN OF CARE AND SAFETY PRECAUTIONS.
--- NOTE | 2020-11-06 19:45 | NUR ---
ASSESSMENT COMPLETE, PT A&O. RESPERATIONS EVEN ON RA. IV TO LEFT HAND WITH IRON INFUSING, IV SITE CLEAN AND DRY, NO SWELLING OR REDNESS NOTED. PD CATH NOTED TO LEFT ABD, ABD BINDER IN USE. PT DENIES PAIN OR NEEDS, BED LOW, CL IN REACH.
[2020-11-06 20:00] VITALS: BP 134/78
[2020-11-06 20:27] LABS: HEMATOCRIT 27.8 % (42.0-54.0); HEMOGLOBIN 8.9 g/dL (13.5-17.5); MCH 28.2 pg (26.0-34.0); MEAN PLATELET VOLUME 10.9 fL (7.4-10.4); RBC 3.16 10x6/uL (4.20-6.10); RDW 16.2 % (11.5-14.5)
[2020-11-06 20:37] LABS: WBC 14.6 10x3/uL (4.8-10.8)
--- NOTE | 2020-11-07 03:13 | NUR ---
RESTING WITH EYES CLOSED, RESPERATIONS EVEN, NO S/S DISTRESS NOTED.
[2020-11-07 04:00] VITALS: BP 131/72
--- NOTE | 2020-11-07 04:24 | NUR ---
I have reviewed this patient and I concur with the Shift Assessment completed by the Licensed Practical Nurse today this shift.
[2020-11-07 06:55] LABS: BASOPHILS 0.1 % (0-2); EOSINOPHILS 0 % (0-7); HEMATOCRIT 26.9 % (42.0-54.0); HEMOGLOBIN 8.6 g/dL (13.5-17.5); IMMATURE GRANULOCYTES 2.1 % (0-5); LYMPHOCYTES 6.7 % (15-50); MCH 28.1 pg (26.0-34.0); MCV 87.9 fL (80.0-100.0); MEAN PLATELET VOLUME 11.1 fL (7.4-10.4); MONOCYTES 6.4 % (2-11); NEUTROPHIL ABS# 11.46 10x3/uL (1.78-5.38); NEUTROPHILS 84.7 % (40-80); PLATELET COUNT 307 10x3/uL (130-400); RBC 3.06 10x6/uL (4.20-6.10); RDW 16.1 % (11.5-14.5); WBC 13.5 10x3/uL (4.8-10.8)
[2020-11-07 06:56] LABS: ALBUMIN 2.5 g/dL (3.4-5.0); ANION GAP 20.2 mmol/L (8-16); BILIRUBIN - TOTAL 0.38 mg/dL (0.2-1.3); CALCIUM 7.7 mg/dL (8.5-10.1); CARBON DIOXIDE 21.8 mmol/L (21.0-32.0); MAGNESIUM - SERUM 1.8 mg/dL (1.8-2.4); PROTEIN - SERUM 6.4 g/dL (6.4-8.2)
[2020-11-07 07:20] LABS: CREATININE - SERUM 21.8 mg/dL (0.6-1.3)
[2020-11-07 08:04] VITALS: BP 142/80
[2020-11-07 09:42] LABS: HEMATOCRIT 28.1 % (42.0-54.0); MCV 87.3 fL (80.0-100.0); MEAN PLATELET VOLUME 10.6 fL (7.4-10.4); RBC 3.22 10x6/uL (4.20-6.10); RDW 15.9 % (11.5-14.5); WBC 14.1 10x3/uL (4.8-10.8)
--- NOTE | 2020-11-07 10:22 | NUR ---
DR. YEBOAH GAVE VERBAL ORDERS FOR US RIGHT ARM TO RULE OUT DVT. VERBAL INSTRUCTIONS FOLLOWS, OKAY TO DC FROM NEPHROLOGY STANDPOINT, NEEDS BM TODAY, DIALYSIS SHOULD BE SET UP, SEE IN CLINIC IN 2-3 WEEKS, 5 MORE DAYS OF PREDNISONE AFTER DC. GAVE PHONE NUMBER TO CONTACT IF ANY ISSUES. NURSE SPOKE WITH CM ABOUT DIALYSIS SET UP. INFORMED DR. ROWE OF ALL OF THIS. ADMINISTERED MIRALAX AND SENNOKOT. ORDERED FREIDA DOP OF RIGHT ARM.
[2020-11-07 11:47] VITALS: BP 133/83
[2020-11-07] MEDS ORDERED: HYDRALAZINE HCL50 MG PO (16:15)
[2020-11-07] MEDS ORDERED: TOPROL XL50 MG PO (16:16)
[2020-11-07] MEDS ORDERED: PHOSLO667 MG PO (16:16)
[2020-11-07] MEDS ORDERED: MIRALAX17 GM PO (16:17)
[2020-11-07] MEDS ORDERED: NEPHRO-VITE RX1 TAB PO (16:17)
[2020-11-07] MEDS ORDERED: MELATONIN 3 MG1 TAB PO (16:17)
[2020-11-07] MEDS ORDERED: MUPIROCIN22 GM NASAL (16:17)
[2020-11-07] MEDS ORDERED: SODIUM BICARBO650 MG PO (16:17)
[2020-11-07] MEDS ORDERED: ROCALTROL0.25 MCG PO (16:17)
[2020-11-07] MEDS ORDERED: PREDNISONE20 MG PO (16:18)
[2020-11-07] MEDS ORDERED: CATAPRES TTS-20.2 MG TD (16:19)
[2020-11-07] MEDS ORDERED: CATAPRES TTS-10.1 MG TD (16:19)
[2020-11-07] MEDS ORDERED: Senokot-S Tablet PO (16:20)
[2020-11-07] MEDS ORDERED: PEPCID AC20 MG PO (16:20)
--- NOTE | 2020-11-07 17:25 | NUR ---
DISCHARGE PAPERWORK BROUGHT IN TO EXPLAIN AND GIVE TO PATIENT. FROM NURSES PERSPECTIVE IT DOES NOT SEEM LIKE THE PATIENT WILL BE COMPLIANT. HE WAS HOLDING HIS ARM OVER HALF OF HIS FACE AND NOT LOOKING AT NURSE OR PAPERWORK. NURSE OFFERED TO MOVE THE OTHER SIDE OF THE BED WHERE HIS ARM WAS NOT COVERING HIS FACE SO HE COULD PAY ATTENTION TO IMPORTANT DISCHARGE INFORMATION. PATIENT DECLINED BUT REMOVED HIS ARM FROM HIS FACE. HE STILL SEEMED TO NOT BE PAYING ATTENTION. NURSE ASKED IF HE HAD ANY QUESTIONS. HE SAID HE DID NOT. NURSE ASKED IF HE UNDERSTOOD THAT HE NEEDED TO [employer] ALL PRESCRIPTIONS, TAKE PRESCRIBED, AND GO TO ALL FOLLOW UP APPOINTMENTS INCLUDING DIALYSIS TOMORROW. HE SAID HE UNDERSTOOD BUT DID NOT SEEM ATTENTIVE TO EDUCATION OFFERED. HE SAID HE WANTED TO DRIVE HOME AND HIS VEHICLE WAS IN THE PARKING LOT. NURSE TOLD HIM HE NEEDED TO CALL A RIDE BECAUSE IT WAS AGAINST HOSPITAL'S RECOMENDATIONS FOR HIM TO DRIVE RIGHT AFTER DISCHARGE. HE SAID HE WOULD CALL SOMEONE. NURSE AWAITING RIDE TO SHOW UP. WILL CONTINUE TO MONITOR.
--- NOTE | 2020-11-07 18:08 | MORECARE ---
CASE MANAGEMENT DISCHARGE SUMMARY PATIENT: RENZO SANCHEZ UNIT: [id number] ADM DATE: 10/29/20 AGE: 50 : 68 SEX: M ROOM/BED: D.0063 AUTHOR: MEKA,DOC PHYSICIAN: REFERRING PHYSICIAN: YAMILETH ELLIOTT MD DATE OF SERVICE: 11/07/20 Case Management Discharge Planning Summary COMMENTS ENTERED DATE: 11/07/20 17:59 CT COMMENT TYPE: Discharge Planning REVIEWER: Aminah Mar CM spoke with Sandrita Gaxiola yesterday and again today. She then called CM back and gave an appointment time 11/08/20 @ 1330. Sandrita sent a welcome letter and it was given to patient. Patient states that he will have transportation to dialysis. CM will continue to follow and assist as needed with discharge planning / needs. ENTERED DATE: 11/04/20 13:47 CT COMMENT TYPE: Discharge Planning REVIEWER: Chasidy Garcia CM met with patient to discuss discharge planning/needs. He states he lives with his girl friend, Mali Salas. He declines to give me her phone number. States he is independent with all ADL's and AIDL's. States Dr. Elliott is his PCP and he uses [facility] [address]. I informed him of availability of home health and DME. I informed him when his Medicaid is active to have Dr. Elliott's office assist with getting him on his Medicaid as a PCP. He will need f/u for PD teaching on discharge. He denies needs at this time. CM will continue to follow and assist with discharge planning/needs. DCP REVIEW SUMMARY ANTICIPATED D/C DATE: EXPECTED LOS : CASE STATUS: DCP Initiated INITIAL REVIEW: 11/04/2020 INITIAL REVIEWER: Chasidy Garcia FINAL DISCHARGE DISPOSITION: 01 : Home or Self Care (Routine Discharge) FINAL REVIEWER: Aminah Mar FINAL REVIEW DATE: 11/07/2020 DCP Focus Questions & Answers DCP Evaluation QUESTION: ANSWER Patient and/or caregiver agree upon recommended discharge plan? : Yes Family / Caregiver's ability to cope with chronic illness: : a. Adequate (ability to meet patient's medical needs, ensures patient attends medical appts.) Patient's current cognitive status: : *Oriented to person, place, situation, time and present Patient's ability to cope with chronic illness : d. No chronic illness Patient gives permission to discuss discharge plans with: (name, relationship and number) : Vibha tolliver - [phone] Functional screen assessment: : Basic needs can adequately be met by self Family / Caregiver's ability to cope with chronic illness: : a. Adequate (ability to meet patient's medical needs, ensures patient attends medical appts.) Physical Status: : Independent with ADL's Equipment needed for post hospitalization: : None Living Arrangements: : Home with Spouse/Significant Other Other Equipment comments: : Will need teaching in PD Results of this evaluation have been discussed with: : Patient Patient with capacity for self-care or can be cared for in same environment as prior to hospitalization? : Yes Baseline cognitive status: : *Oriented to person, place, situation, time and present Preadmission facility can/cannot provide post hospital level of care needs: : Can - at same level of care as preadmission Medication Management: : Patient states can afford medications Planned post hospital services available for patient? : Yes Pharmacy name(s): : [facility] [address] Does Patient have transportation to get home and to follow-up medical appointments when discharged from the hospital? : Yes Would patient like to participate in any Care Coordination programs (if applicable): : Not applicable Does the patient have electricity at home? : Yes Does the patient have running water in their house? : Yes Equipment in use: : None Resources / Services in place: : None DCP Re-evaluation QUESTION: ANSWER Would patient like to participate in any Care Coordination programs (if applicable): : Not applicable PATIENT: RENZO SANCHEZ ENCOUNTER: [id number] MEDICAL RECORD#: [id number] ADMISSION DATE: 10/29/2020 DISCHARGE DATE: ATTENDING MD: YAMILETH WONG : AGE: 50 MARITAL STATUS: S DC PLAN ID: [id number] FACILITY: [facility] PRINTED ON: 11/07/20 18:08 CT All edits/amendments must be made on the electronic document DICTATION DATE: 11/07/201807 TOOL POLISHING MACHINE OPERATOR: LASHONDA 11/07/201807 RPT#: [id number] DC DATE: STATUS: ADM IN [facility] [address] [place] [address] END OF REPORT
--- NOTE | 2020-11-07 18:08 | NUR ---
VERBAL INSTRUCTIONS AGAIN GIVEN TO PATIENT NURSE WAS DISCHARGING VIA WHEELCHAIR WITH FRIEND PRESENT. PATIENT SEEMED MUCH MORE RECEPTIVE TO EDUCATION AND REASSURED NURSE HE WOULD SHOW UP FOR DIALYSIS TOMORROW.
--- NOTE | 2020-11-07 18:19 | MORECARE ---
CASE MANAGEMENT DISCHARGE SUMMARY PATIENT: RENZO SANCHEZ UNIT: [id number] ADM DATE: 10/29/20 AGE: 50 : 68 SEX: M ROOM/BED: D.7713 AUTHOR: MEKA,DOC PHYSICIAN: REFERRING PHYSICIAN: YAMILETH ELLIOTT MD DATE OF SERVICE: 11/07/20 Case Management Discharge Planning Summary COMMENTS ENTERED DATE: 11/07/20 17:59 CT COMMENT TYPE: Discharge Planning REVIEWER: Aminah Mar CM spoke with Sandrita Gaxiola yesterday and again today. She then called CM back and gave an appointment time 11/08/20 @ 1330. Sandrita sent a welcome letter and it was given to patient. Patient states that he will have transportation to dialysis. CM will continue to follow and assist as needed with discharge planning / needs. ENTERED DATE: 11/04/20 13:47 CT COMMENT TYPE: Discharge Planning REVIEWER: Chasidy Garcia CM met with patient to discuss discharge planning/needs. He states he lives with his girl friend, Mali Salas. He declines to give me her phone number. States he is independent with all ADL's and AIDL's. States Dr. Elliott is his PCP and he uses [facility] [address]. I informed him of availability of home health and DME. I informed him when his Medicaid is active to have Dr. Elliott's office assist with getting him on his Medicaid as a PCP. He will need f/u for PD teaching on discharge. He denies needs at this time. CM will continue to follow and assist with discharge planning/needs. DCP REVIEW SUMMARY ANTICIPATED D/C DATE: EXPECTED LOS : CASE STATUS: DCP Initiated INITIAL REVIEW: 11/04/2020 INITIAL REVIEWER: Chasidy Garcia FINAL DISCHARGE DISPOSITION: 01 : Home or Self Care (Routine Discharge) FINAL REVIEWER: Aminah Mar FINAL REVIEW DATE: 11/07/2020 DCP Focus Questions & Answers DCP Evaluation QUESTION: ANSWER Patient and/or caregiver agree upon recommended discharge plan? : Yes Family / Caregiver's ability to cope with chronic illness: : a. Adequate (ability to meet patient's medical needs, ensures patient attends medical appts.) Patient's current cognitive status: : *Oriented to person, place, situation, time and present Patient's ability to cope with chronic illness : d. No chronic illness Patient gives permission to discuss discharge plans with: (name, relationship and number) : Vibha tolliver - [phone] Functional screen assessment: : Basic needs can adequately be met by self Family / Caregiver's ability to cope with chronic illness: : a. Adequate (ability to meet patient's medical needs, ensures patient attends medical appts.) Physical Status: : Independent with ADL's Equipment needed for post hospitalization: : None Living Arrangements: : Home with Spouse/Significant Other Other Equipment comments: : Will need teaching in PD Results of this evaluation have been discussed with: : Patient Patient with capacity for self-care or can be cared for in same environment as prior to hospitalization? : Yes Baseline cognitive status: : *Oriented to person, place, situation, time and present Preadmission facility can/cannot provide post hospital level of care needs: : Can - at same level of care as preadmission Medication Management: : Patient states can afford medications Planned post hospital services available for patient? : Yes Pharmacy name(s): : [facility] [address] Does Patient have transportation to get home and to follow-up medical appointments when discharged from the hospital? : Yes Would patient like to participate in any Care Coordination programs (if applicable): : Not applicable Does the patient have electricity at home? : Yes Does the patient have running water in their house? : Yes Equipment in use: : None Resources / Services in place: : None DCP Re-evaluation QUESTION: ANSWER Would patient like to participate in any Care Coordination programs (if applicable): : Not applicable PATIENT: RENZO SANCHEZ ENCOUNTER: [id number] MEDICAL RECORD#: [id number] ADMISSION DATE: 10/29/2020 DISCHARGE DATE: 11/07/2020 ATTENDING MD: YAMILETH WONG : 1970- AGE: 50 MARITAL STATUS: S DC PLAN ID: [id number] FACILITY: [facility] PRINTED ON: 11/07/20 18:19 CT All edits/amendments must be made on the electronic document DICTATION DATE: 11/07/201818 [employer]ICE [employer] ATTENDANT: LASHONDA 11/07/201818 RPT#: [id number] DC DATE:11/07/20 STATUS: DIS IN [facility] [address] [place] [address] END OF REPORT
== END 2020-11-07 18:09 | disposition home or self-care (01) | DRG 673 ==
LOC: D.ICU 18:16 → D.M2 18:37 → D.ICU 18:37 → D.M2 10-31 15:48
PROVIDERS: Emergency Medicine; Family Medicine; Internal Medicine Nephrology; Surgery; ADMIT Family Medicine Adult Medicine; ATTEND Family Medicine Adult Medicine
PROC: 0WHG43Z Insertion of Infusion Device into Peritoneal Cavity, Percutaneous Endoscopic Approach (ICD-10-PCS; principal; 2020-11-02 07:30)
DX: I12.0 Hypertensive chronic kidney disease with stage 5 chronic kidney disease or end stage renal disease (principal); N18.6 End stage renal disease; K85.90 Acute pancreatitis without necrosis or infection, unspecified; N17.9 Acute kidney failure, unspecified; E87.2 Acidosis; D63.1 Anemia in chronic kidney disease; E78.5 Hyperlipidemia, unspecified; F41.9 Anxiety disorder, unspecified; D50.9 Iron deficiency anemia, unspecified